=== PATIENT | female | born 1985 | race Caucasian/White ===

== ENCOUNTER 2017-04-09 13:04 | Day surgery (SDC) | payer OTHER ==
[~2017-04-09] VITALS: Ht 177.8 cm; Wt 96.8 kg
[2017-04-09 13:39] VITALS: BP 134/76; PULSE 81; TEMP 98.3
[2017-04-09] MEDS ORDERED: MULTI VITAMINS1 TAB PO (13:43)
[2017-04-09 15:05] VITALS: BP 125/64; PULSE 83; TEMP 98.2
[2017-04-09 15:30] VITALS: BP 120/77; PULSE 73
[2017-04-09 15:45] VITALS: BP 117/71; PULSE 74
== END 2017-04-09 15:45 | disposition home or self-care (01) ==
LOC: SDCO 13:04
DX: K21.0 Gastro-esophageal reflux disease with esophagitis (principal); K29.30 Chronic superficial gastritis without bleeding; R19.7 Diarrhea, unspecified; E66.9 Obesity, unspecified; Z87.891 Personal history of nicotine dependence; Z83.79 Family history of other diseases of the digestive system
CPT/HCPCS: OP; J2250; J3010; J7030